=== PATIENT | female | born 1955 | race Hispanic/Latino ===

== ENCOUNTER 2019-07-31 08:18 | Outpatient (CLI) | payer OTHER, SELFPAY ==
--- NOTE | ~2019-07-31 | MM_ITS ---
EXAMINATION: MM screening annette BI w [facility] HISTORY: Screening mammogram TECHNIQUE: Craniocaudal and mediolateral oblique 3-D tomosynthesis images were obtained and synthetic 2-D images were generated. CAD analysis was submitted and interpreted. COMPARISON: 12/25/2016 bilateral diagnostic digital mammogram 12/25/2016 bilateral diagnostic digital mammogram and limited left breast ultrasound BREAST PARENCHYMAL COMPOSITION: The breasts are heterogeneously dense, which may obscure small masses . FINDINGS: Right breast implant. History of left breast malignancy 20 years ago. Possible 8mm upper left breast mass (MLO Tomosynthesis image 12/33). Possible 12 mm mass versus nipple, outer mid left breast MLO Tomosynthesis image 1/33). There is arch itectural distortion in this region. Diagnostic left mammogram and left breast ultrasound examination are recommended. There are some benign calcifications bilaterally. No interval right breast mass or architectural distortion is evident.. IMPRESSION: 1. Possible left breast mass(es), left breast architectural distortion 2. Diagnostic left mammogram and left breast ultrasound examination are recommended. BI-RADS Category 0: Incomplete: Needs additional imaging evaluation. Reviewed, dictated and finalized at location A. IMPRESSION: 1. Possible left breast mass(es), left breast architectural distortion 2. Diagnostic left mammogram and left breast ultrasound examination are recomme nded. BI-RADS Category 0: Incomplete: Needs additional imaging evaluation.
--- NOTE | ~2019-07-31 | DEXA_ITS ---
Bone Density Report Name: Jackelin Bella Age: 63 Sex: Female Ethnicity: White Date of : 1955 Indication: osteopenia; cancer; hysterectomy;post menopausal Referring Provider: GIOVANNI DAVID Study: Bone densitometry was performed. Exam Date: July 31, 2019 Accession number: [id number] Bone Density: Region BMD T-score Z-score Classification AP Spine (L1, L2) 0.709 -2.5 -0.8 Osteoporosis Femoral Neck (Left) 0.615 -2.1 -0.6 Osteopenia Total Hip (Left) 0.678 -2.2 -1.0 Osteopenia Total Hip Bilateral Avg 0.685 -2.1 -0.9 Osteopenia Femoral Neck (Right) 0.620 -2.1 -0.6 Osteopenia Total Hip (Right) 0.692 -2.0 -0.8 Osteopenia World Health Organization criteria for BMD impression classify patients as: Normal (T-score at or above -1.0), Osteopenia (T-score between -1.0 and -2.5), or Osteoporosis (T-score at or below -2.5). 10-year Fracture Risk: FRAX not reported because: Some T-score for Spine Total or Hip Total or Femoral Neck at or below -2.5 Previous Exams: Region Exam Age BMD T-score BMD Change BMD Change Date g/cm2 vs Baseline vs Previous AP Spine(L1, L2) 07/31/2019 63 0.709 -2.5 -0.043(-5.7%)* -0.043(-5.7%)* 04/13/2017 61 0.751 -2.1 Total Hip(Left) 07/31/2019 63 0.678 -2.2 -0.041(-5.7%)* -0.041(-5.7%)* 04/13/2017 61 0.719 -1.8 Total Hip(Right) 07/31/2019 63 0.692 -2.0 -0.024(-3.4%) -0.024(-3.4%) 04/13/2017 61 0.717 -1.8 *Denotes significance at 95% confidence level, LSC for AP Spine = 0.022 g/cm2, LSC for Total Hip = 0.027 g/cm2 Clinical Information Provided by Patient: Smokes Has used the following medications: Calcium Has the following medical conditions: Cancer, Hysterectomy Patient maximum height was 61 Menopause Age: 34 Onset of menses at age 12 Number of children 3 Impression: The patient has osteoporosis, based on the Total Spine T-score. The patient has risk factors, including: smoking. The BMD for the AP Spine(L1, L2) decreased, changing by -5.7% since the last DXA exam. The BMD for the Total Hip(Left) decreased, changing by -5.7% since the last DXA exam. Discussion: INCREASED RISK OF FRACTURE. BONE DENSITY IS UNDESIRABLY LOW AT ONE OR MORE SKELETAL SITES, CONSISTENT WITH POSTMENOPAUSAL OSTEOPOROSIS. This patient's lowest T-score meets the World Health Organization's (WHO) criteria for osteoporosis at one or more sites (T-score -2.5 or below). In untreated patients, the risk of osteoporotic fracture increases approximately two-fo
== END 2019-07-31 08:19 | disposition home or self-care (01) ==
LOC: ANHIMG 08:22
PROVIDERS: PCP Emergency Medicine; Visit Provider Emergency Medicine
DX: Z12.31 Encounter for screening mammogram for malignant neoplasm of breast (principal); M85.88 Other specified disorders of bone density and structure, other site; R92.8 Other abnormal and inconclusive findings on diagnostic imaging of breast; M81.0 Age-related osteoporosis without current pathological fracture; M85.852 Other specified disorders of bone density and structure, left thigh; M85.851 Other specified disorders of bone density and structure, right thigh
CPT/HCPCS: 77063; 77067; 77080